=== PATIENT | male | born 1945 | race Caucasian/White ===

== ENCOUNTER 2020-08-16 08:01 | Inpatient (IN) | payer MEDICARE ==
[2020-08-16] MEDS ORDERED: Dexamethasone 10 MG/ML VIAL ONE (08:39)
[2020-08-16] MEDS ORDERED: Morphine 4 MG/ML VIAL ONE (08:56)
[2020-08-16] MEDS ORDERED: Ondansetron PF 4 MG/2 ML Vial ONE (08:57)
[2020-08-16 09:07] LABS: #Lymphocytes 0.5 thou/uL (1.20-3.40); #Monocytes 0.2 thou/uL (0.11-0.59); #Neutrophils 8.7 thou/uL (1.40-6.50); %Basophils 0.1 % (0.0-1.0); %Eosinophils 0.1 % (0.0-10.0); %Lymphocytes 5.7 % (21.0-51.0); %Monocytes 2.2 % (0.0-10.0); Mean Corpuscular HGB CONC 33.9 g/dL (32.0-36.0); Mean Corpuscular Hemoglobin 31.4 pg (27.0-31.0); Mean Corpuscular Volume 92.9 fL (78.0-98.0); Mean Platelet Volume 8.6 fL (7.4-10.4); Platelet Count 165 thou/uL (130-400); RBC Distribution Width 12.7 % (11.5-14.5); Red Blood Cell (RBC) Count 4.14 mill/uL (4.70-6.10); White Blood Cell (WBC) Count 9.4 thou/uL (4.8-10.8)
--- NOTE | 2020-08-16 09:18 | RAD ---
Chest one view HISTORY: Cough and dyspnea. COMPARISON: 03/13/2015. FINDINGS: Cardiac silhouette is magnified and upper limits of normal in size. Pulmonary vasculature p redominantly engorged by ill-defined patchy peripheral areas of groundglass infiltrate involving each lung. Mediastinum is midline with a dual lead left subclavian cardiac electronic device. Evidence of chronic bilateral rotator cuff tears. No lobar consolidation or evidence of pneumothorax. IMPRESSION : Multifocal bilateral infiltrates. Correlate for COVID pneumonitis.
[2020-08-16 09:28] LABS: ALT (SGPT) 35 U/L (8-55); AST (SGOT) 50 U/L (5-34); Albumin 3.6 g/dL (3.4-4.8); Alkaline Phosphatase 40 U/L (40-110); Anion Gap 16 mmol/L (10-20); BUN (Urea Nitrogen) 38 mg/dL (8.4-25.7); Bilirubin, Total 0.7 mg/dL (0.2-1.2); Calc. Creatinine Clearance 0 mL/min (70-130); Carbon Dioxide 17 mmol/L (23-31); Chloride 109 mmol/L (98-107); Globulin 2.6 g/dL (2.4-3.5); Glucose 123 mg/dL (83-110); Potassium 4.2 mmol/L (3.5-5.1); Protein, Total 6.2 g/dL (5.8-8.1); Sodium 138 mmol/L (136-145)
[2020-08-16 09:50] LABS: CKMB 2.4 ng/mL (0-6.6)
[2020-08-16 10:52] LABS: SARS-CoV-2 NAA Rapid Test DETECTED (NotDetected)
--- NOTE | 2020-08-16 12:30 | PDOC.FPRHP ---
- History of Present Illness Chief Complaint: SOB History of Present Illness: Patient is a 75 year old male with hx of CHF with AICD/Pacemaker, CAD, afib who presents for worsening SOB. Patient reported he had been overall feeling "unwell" for the past two weeks. He did a virtual visit with his PCP who prescribed him azithromycin which didn't help. He states he symptoms worsened last on 07/12. He endorses subject fevers, dyspnea with decreased appetite. He denies cough, chest pain. In the ER he was found to require 4L nasal cannula oxygen. In the ED, patient was 88% on RA. Place on 4 L NC with sat 94%. EKS showed NSR without ST segment changes, premature atrial contractions present. Given 10mg dexamethasone, 4mg morphine and zofran. - Allergies/Adverse Reactions Allergies Allergy/AdvReac Type Severity Reaction Status Date / Time hydrochlorothiazide Allergy Verified 04/23/14 11:59 - Home Medications Medication Instructions Recorded Confirmed Type Apixaban [Eliquis] 5 mg PO BID #0 tab 03/16/15 08/16/20 Rx Allopurinol 300 mg PO DAILY 08/16/20 08/16/20 History Ezetimibe [Zetia] 10 mg PO DAILY 08/16/20 08/16/20 History Isosorbide Mononitrate [Imdur ER] 30 mg PO DAILY 08/16/20 08/16/20 History Metoprolol Succinate [Toprol XL] 100 mg PO DAILY 08/16/20 08/16/20 History Olmesartan [Benicar] 40 mg PO DAILY 08/16/20 08/16/20 History Pravastatin Sodium [Pravachol] 20 mg PO HS 08/16/20 08/16/20 History - History PMHx: afib, CHF with AICD, CAD, chronic back pain, ICD with pacer, anxiety, depression Surgery: appendectomy, AICD placement Family history: heart disease Social history: 60 pack year history, quit 5 years ago, usually drinks 2-3 glasses of wine/night, last drink 1 week ago, denies drug use - Review of Systems General: reports: fever/chills, weight/appetite/sleep changes. denies: fatigue Eyes: denies: vision changes ENT: denies: nasal congestion, rhinorrhea Respiratory: reports: shortness of breath. denies: cough, congestion Cardiovascular: denies: chest pain, palpitation, edema Gastrointestinal: reports: diarrhea. denies: nausea, abdominal pain Genitourinary: denies: dysuria Skin: denies: rashes, jaundice Musculoskeletal: denies: pain, stiffness Neurological: denies: syncope, weakness Psychological: denies: anxiety, depression - Vital signs BP 126/74, HR 79, RR 31, Temp 99.8F, O2 sat 93-95% on 4L, 101.4kg - Physical Exam Constitutional: NAD, awake, alert and oriented HEENT: normocephalic and atraumatic, no scleral icterus, other (mildy dry mucosal membranes) Neck: supple, trachea midline Heart: RRR, normal S1/S2, no edema Lungs: CTAB, good air movement, no rales/rhonchi, no wheezing, no retractions -Lungs: mildly tachypneic Abdomen: soft, non-tender, bowel sounds present Musculoskeletal: normal structure, ROM grossly normal Neurological: no focal deficit Skin: no rash/lesions Heme/Lymphatic: no unusual bruising or bleeding Psychiatric: normal mood and affect, good judgment and insight FMR H&P: Results - Labs Result Diagrams: 08/16/20 08:52 08/16/20 08:53 Lab results: WBC 9.4 thou/uL (4.8-10.8) 08/16/20 08:52 Hgb 13.0 g/dL (14.0-18.0) L 08/16/20 08:52 Hct 38.4 % (42.0-52.0) L 08/16/20 08:52 MCV 92.9 fL (78.0-98.0) 08/16/20 08:52 Plt Count 165 thou/uL (130-400) 08/16/20 08:52 Neutrophils % 92.0 % (42.0-75.0) H 08/16/20 08:52 Sodium 138 mmol/L (136-145) 08/16/20 08:53 Potassium 4.2 mmol/L (3.5-5.1) 08/16/20 08:53 Chloride 109 mmol/L (98-107) H 08/16/20 08:53 Carbon Dioxide 17 mmol/L (23-31) L 08/16/20 08:53 BUN 38 mg/dL (8.4-25.7) H 08/16/20 08:53 Creatinine 1.22 mg/dL (0.7-1.3) 08/16/20 08:53 Glucose 123 mg/dL (83-110) H 08/16/20 08:53 Lactic Acid 1.4 mmol/L (0.5-2.2) 08/16/20 08:52 Calcium 8.0 mg/dL (7.8-10.44) 08/16/20 08:53 Total Bilirubin 0.7 mg/dL (0.2-1.2) 08/16/20 08:53 AST 50 U/L (5-34) H 08/16/20 08:53 ALT 35 U/L (8-55) 08/16/20 08:53 Alkaline Phosphatase 40 U/L (40-110) 08/16/20 08:53 CK-MB (CK-2) 2.4 ng/mL (0-6.6) 08/16/20 08:53 B-Natriuretic Peptide 227.0 pg/mL (0-100) H 08/16/20 08:52 Serum Total Protein 6.2 g/dL (5.8-8.1) 08/16/20 08:53 Albumin 3.6 g/dL (3.4-4.8) 08/16/20 08:53 - EKG Interpretation EKG: NSR without ST segment changes, premature atrial contractions present - Radiology Interpretation Chest x-ray Status: image reviewed by me, report reviewed by me Additional comment: multifocal bilateral infiltrates, consistent with COVID pneumonia FMR H&P: A/P - Plan 75 year old year old male with hx CHF, afib and CAD who presented with SOB and fever Acute hypoxic respiratory failure 2/2 COVID pneumonia requiring supplemental oxygen Symptom onset 08/12 . COVID+ 08/16/20. Sat'ing 88% on RA, transitioned to 4 L NC with 94-95%. WBC 9.4. Afebrile. CXR consistent with COVID pneumonia. -Admit to inpatient tele due to multiple cardiac comoribidites and indeterminate troponin -Decadron (08/16) in ED. Start remdesivir and convalescent plasma. -Obtain procal, d-dimer level and other COVID risk stratifying labs -Abxs pending procal -Will order COVID baseline labs Indeterminate troponin > NSTEMI, suspect type II -Denies chest pain -Suspect type II due to demand ischemia from hypoxia -> repeat EKG, start th. lovenox -EKG: Showed NSR without ST segment changes, premature atrial contractions present -Continue to trend troponins Elevated BNP in HFrEF with AICD/PM -Euvolemic, continue home lasix -Strict I/Os -Follows with Dr. Tinajero outpatient Hx afib -Rate controlled -Continue home meds Chronic back pain -MD aware Gout -Continue home allopurinol HLD -Home meds CAD -Home meds dvt ppx: Home eliquis GI ppx: Protonix Code: DNR PCP: KURT Discussed with Dr. Jarrett FMR H&P: Upper Level - Plan Date/Time: 08/16/20 1230 I, [], have evaluated this patient and agree with findings/plan as outlined by internal wholesaler resident. Pertinent changes/additions are listed here. Addendum - Attending - Attending Attestation Date/Time: 08/16/20 5377 I personally evaluated the patient and discussed the management with Dr. Keith. I agree with the History, Examination, Assessment and Plan documented above with any addition or exceptions noted below.
[2020-08-16] MEDS ORDERED: Acetaminophen 325 MG TAB PO PRN (12:49)
[2020-08-16] MEDS ORDERED: Ondansetron ODT 4 MG TAB PO PRN (12:49)
[2020-08-16] MEDS ORDERED: Ondansetron PF 4 MG/2 ML Vial IVP PRN (12:49)
[2020-08-16] MEDS ORDERED: Nicotine 14 MG PATCH TD SCH (13:00)
[2020-08-16] MEDS ORDERED: REMDESIVIR (EUA) 200 MG in Sodium Chloride 0.9% 250 ML 210 ML IV SCH (13:30)
[2020-08-16] MEDS ORDERED: Iopamidol-370 76% 500 ML 1 ML ONE (13:34)
[2020-08-16 13:37] LABS: Troponin I 0.339 ng/mL (< 0.028)
--- NOTE | 2020-08-16 14:31 | CT ---
Exam: CT angiogram of the chest HISTORY: Elevated d-dimer. Congestive heart failure. Fever and shortness of breath. COMPARISON: None TECHNIQUE: CT angiogram of the chest is performed in the axial plane. Three-dimensional reformatted i mages are submitted for interpretation FINDINGS: Mediastinum: No mass, lymphadenopathy or hematoma. HEART: Normal size. No significant pericardial fluid. Aorta: No aneurysm or dissection. Scattered atherosclerotic disease Upper solid abdominal viscera: No abnormality enhancement. Trachea and central bronchi: Patent Pleural spaces: No effusion Lung parenchyma: Scattered groundglass opacities compatible with COVID pneumonia. Minimal dependent a telectatic changes. Pneumothorax: None Osseous structures: No lytic or blastic lesions Pulmonary arteries: Adequate contrast opacification pulmonary arterial system to the level of segment al arteries. No filling defect to suggest pulmonary embolism IMPRESSION: 1. No evidence of pulmonary artery embolism to the level of the segmental arteries 2. Multi lobar groundglass opacities, distribution consistent with COVID pneumonia. Confirm patient's COVID status.
[2020-08-16] MEDS ORDERED: Aspirin 325 MG TAB PO SCH (15:00)
[2020-08-16 15:21] VITALS: BMI 35.6
[2020-08-16] MEDS ORDERED: PROVENTIL INHALER 6.7 G (200 INHALATIONS) INH PRN (15:32)
[2020-08-16 15:56] LABS: Critical Call Chem Troponin I RESULT DECREASING; Troponin I 0.331 ng/mL (< 0.028)
[2020-08-16] MEDS ORDERED: Azithromycin 500 MG in Sodium Chloride 0.9% 250 ML 250 ML IVPB SCH (18:00)
[2020-08-16] MEDS: cefTRIAXone\\ROCEPHIN 2 GM in Sodium Chloride 0.9% 100 ML IVPB SCH (19:49)
[2020-08-16] MEDS: Apixaban 5 MG TAB PO SCH (19:50)
[2020-08-16] MEDS: Enoxaparin Sodium 100 MG/ML SYRINGE SC SCH (19:50)
[2020-08-16] MEDS ORDERED: Atorvastatin Calcium 10 MG TAB PO SCH (21:00)
[2020-08-17 05:17] LABS: #Lymphocytes 0.9 thou/uL (1.20-3.40); #Monocytes 0.5 thou/uL (0.11-0.59); #Neutrophils 5.5 thou/uL (1.40-6.50); %Basophils 0.1 % (0.0-1.0); %Eosinophils 0.1 % (0.0-10.0); %Lymphocytes 13.3 % (21.0-51.0); %Monocytes 7.3 % (0.0-10.0); %Neutrophils 79.2 % (42.0-75.0); Hemoglobin 11.9 g/dL (14.0-18.0); Mean Corpuscular HGB CONC 33.3 g/dL (32.0-36.0); Mean Corpuscular Hemoglobin 31.2 pg (27.0-31.0); Mean Corpuscular Volume 93.7 fL (78.0-98.0); Mean Platelet Volume 8.8 fL (7.4-10.4); Platelet Count 194 thou/uL (130-400); RBC Distribution Width 12.6 % (11.5-14.5); Red Blood Cell (RBC) Count 3.82 mill/uL (4.70-6.10)
[2020-08-17 05:39] LABS: Anion Gap 14 mmol/L (10-20); BUN (Urea Nitrogen) 40 mg/dL (8.4-25.7); Calc. Creatinine Clearance 104 mL/min (70-130); Calcium 8.4 mg/dL (7.8-10.44); Carbon Dioxide 18 mmol/L (23-31); Chloride 111 mmol/L (98-107); Glucose 154 mg/dL (83-110); Potassium 4.3 mmol/L (3.5-5.1); Sodium 139 mmol/L (136-145)
--- NOTE | 2020-08-17 06:11 | PDOC.FM ---
- Subjective Subjective: Denies headache, vision changes, chest pain, palpitations, SOB, nausea, abdominal pain and edema. Reports he feels well. Tele: a-paced - Objective MAR Reviewed: Yes Vital Signs & Weight: Vital Signs (12 hours) Temp Pulse Resp BP Pulse Ox 08/17/20 04:54 95 08/17/20 04:00 97.7 F 63 18 142/74 H 95 08/17/20 00:30 98.2 F 63 20 148/68 H 95 08/16/20 20:00 98.3 F 70 26 H 129/70 98 Weight Weight 100.244 kg I&O: 08/15/20 08/16/20 08/17/20 06:59 06:59 06:59 Intake Total 970 Output Total 600 Balance 370 Result Diagrams: 08/17/20 05:00 08/17/20 05:00 Phys Exam - Physical Examination Constitutional: NAD HEENT: moist MMs, sclera anicteric Neck: full ROM Respiratory: no wheezing, clear to auscultation bilateral On 4L Cardiovascular: RRR, no significant murmur Gastrointestinal: soft, non-tender, positive bowel sounds Musculoskeletal: no edema Neurological: non-focal Psychiatric: normal affect, A&O x 3 Skin: no rash Dx/Plan - Plan Plan: 75 year old year old male with hx CHF, afib and CAD who presented with SOB and fever Acute hypoxic respiratory failure 2/2 COVID pneumonia requiring supplemental oxygen Symptom onset 08/12 . COVID+ 08/16/20. Sat'ing 88% on RA in ED, transitioned to 4 L NC. WBC 9.4. Afebrile. CXR consistent with COVID pneumonia. -Admit to inpatient tele due to multiple cardiac comoribidites and indeterminate troponin -Decadron (08/16), remdesivir (08/16) and convalescent plasma (08/16) -D-dimer 1.09. CTA Chest negative for PE -Procal 1.45. Continue azithromycin (08/16) and rocephin (08/16) -PT/OT/CM consulted -Currently on 4L NC. Wean as tolerated NSTEMI, suspect type II Suspect type II due to demand ischemia from hypoxia. Initial EKG showed NSR without ST segment changes, premature atrial contractions present. Repeat EKG showed NSR with premature ventricular contractions -Trop trended: 0.172 > 0.399 > 0.331 -Denies chest pain -Continue therapeutic lovenox -Start ASA 81mg daily -Start atorvastatin 80mg daily Elevated BNP in HFrEF with AICD/PM -Euvolemic, continue home lasix -Strict I/Os -Follows with Dr. Tinajero outpatient Hx afib -Rate controlled -Continue home meds Chronic back pain -MD aware Gout -Continue home allopurinol HLD -Home meds CAD -Home meds dvt ppx: Therapeutic lovenox GI ppx: Protonix Code: DNR PCP: OOT Dispo: Pending PT/OT recs and further medical management Addendum - Attending - Attending Attestation Date/Time: 08/17/20 9364 I personally evaluated the patient and discussed the management with Dr. Parker. I agree with the History, Examination, Assessment and Plan documented above with any addition or exceptions noted below. Patient denies complaints. Reports less dyspnea this morning. Continue treatment for COVID. He will continue on Eliquis for anticoagulation for his demand ische mark picture. Has chronic CHF that we will need to monitor closely. PT.
[2020-08-17] MEDS: Azithromycin 250 MG TAB PO SCH (08:51)
[2020-08-17] MEDS: Allopurinol 300 MG TAB PO SCH (08:51)
[2020-08-17] MEDS: Enoxaparin Sodium 100 MG/ML SYRINGE SC SCH (08:51)
[2020-08-17] MEDS: Dexamethasone 4 MG TAB PO SCH (08:52)
[2020-08-17] MEDS: Ezetimibe 10 MG TAB PO SCH (08:53)
[2020-08-17] MEDS: Losartan 25 MG TAB PO SCH (08:54)
[2020-08-17] MEDS: Aspirin 81 mg Enteric Coated Tablet PO SCH (08:54)
[2020-08-17] MEDS: Furosemide 20 MG TAB PO SCH (08:54)
[2020-08-17] MEDS: REMDESIVIR (EUA) 100 MG in Sodium Chloride 0.9% 250 ML 230 ML IV SCH (15:31)
[2020-08-17] MEDS: cefTRIAXone\\ROCEPHIN 2 GM in Sodium Chloride 0.9% 100 ML IVPB SCH (18:39)
[2020-08-17] MEDS: Apixaban 5 MG TAB PO SCH (20:33)
[2020-08-17] MEDS: Atorvastatin Calcium 40 MG TAB PO SCH (20:33)
[2020-08-18 05:57] LABS: #Lymphocytes 1.1 thou/uL (1.20-3.40); #Monocytes 0.6 thou/uL (0.11-0.59); #Neutrophils 8.6 thou/uL (1.40-6.50); %Basophils 0.3 % (0.0-1.0); %Lymphocytes 10.3 % (21.0-51.0); %Monocytes 5.6 % (0.0-10.0); %Neutrophils 83.7 % (42.0-75.0); Hemoglobin 11.4 g/dL (14.0-18.0); Mean Corpuscular HGB CONC 32.6 g/dL (32.0-36.0); Mean Corpuscular Hemoglobin 30.6 pg (27.0-31.0); Mean Corpuscular Volume 93.9 fL (78.0-98.0); Mean Platelet Volume 8.6 fL (7.4-10.4); Platelet Count 234 thou/uL (130-400); RBC Distribution Width 12.7 % (11.5-14.5); Red Blood Cell (RBC) Count 3.73 mill/uL (4.70-6.10); White Blood Cell (WBC) Count 10.3 thou/uL (4.8-10.8)
[2020-08-18 06:08] LABS: Anion Gap 14 mmol/L (10-20); BUN (Urea Nitrogen) 44 mg/dL (8.4-25.7); Calc. Creatinine Clearance 96 mL/min (70-130); Carbon Dioxide 20 mmol/L (23-31); Chloride 114 mmol/L (98-107); Potassium 4.8 mmol/L (3.5-5.1); Sodium 143 mmol/L (136-145)
[2020-08-18 06:09] LABS: Calcium 8.4 mg/dL (7.8-10.44); Glucose 144 mg/dL (83-110)
--- NOTE | 2020-08-18 06:25 | PDOC.FM ---
- Subjective Subjective: Reports improvement of SOB. Continued generalized weakness. Notes development of cough with productive sputum. Denies headache, vision changes, chest pain, palpitations and edema. Says he is willing to go to rehab upon discharge per PT/OT recs - Objective MAR Reviewed: Yes Vital Signs & Weight: Vital Signs (12 hours) Temp Pulse Resp BP BP Pulse Ox 08/18/20 05:00 142/64 H 08/18/20 04:00 97.6 F 62 18 142/64 H 95 08/18/20 00:11 144/67 H 08/17/20 23:57 97.8 F 69 18 144/67 H 95 08/17/20 21:00 133/70 08/17/20 20:21 96.5 F L 75 20 133/70 98 Weight Weight 100.244 kg I&O: 08/16/20 08/17/20 08/18/20 06:59 06:59 06:59 Intake Total 970 1310 Output Total 600 1125 Balance 370 185 Result Diagrams: 08/18/20 05:36 08/18/20 05:36 Phys Exam - Physical Examination Constitutional: NAD HEENT: moist MMs, sclera anicteric Neck: full ROM Respiratory: no wheezing, clear to auscultation bilateral On 3L Cardiovascular: RRR, no significant murmur Gastrointestinal: soft, non-tender, positive bowel sounds Musculoskeletal: no edema Neurological: moves all 4 limbs Psychiatric: normal affect, A&O x 3 Skin: no rash Dx/Plan - Plan Plan: 75 year old year old male with hx CHF, afib and CAD who presented with SOB and fever Acute hypoxic respiratory failure 2/2 COVID pneumonia requiring supplemental oxygen Symptom onset 08/12 . COVID+ 08/16/20. Sat'ing 88% on RA in ED, transitioned to 4 L NC upon admission. WBC 9.4. Afebrile. CXR consistent with COVID pneumonia. -Admit to inpatient tele due to multiple cardiac comoribidites and indeterminate troponin -Decadron (08/16), remdesivir (08/16) and convalescent plasma (08/16) -D-dimer 1.09. CTA Chest negative for PE -Procal 1.45. Continue azithromycin (08/16) and rocephin (08/16) -Mucinex for cough -PT/OT consulted. Recommended rehab placement -CM consulted for rehab -Currently on 3L NC. Wean as tolerated NSTEMI, suspect type II 2/2 demand ischemia Suspect type II due to demand ischemia from hypoxia. Initial EKG showed NSR without ST segment changes, premature atrial contractions present. Repeat EKG showed NSR with premature ventricular contractions -Trop trended: 0.172 > 0.399 > 0.331 -Denies chest pain -Continue home eliquis -Continue ASA 81mg daily -Continue atorvastatin 80mg daily HFrEF with AICD/PM -Euvolemic, continue home lasix -Strict I/Os -Follows with Dr. Tinajero outpatient Hx afib -Rate controlled -Continue home meds Chronic back pain -MD aware Gout -Continue home allopurinol HLD -Home meds CAD -Home meds dvt ppx: Home eliquis GI ppx: Protonix Code: DNR PCP: KURT Dispo: Rehab pending further medical management and placement approval Addendum - Attending - Attending Attestation Date/Time: 08/18/20 1111 I personally evaluated the patient and discussed the management with Dr. Parker. I agree with the History, Examination, Assessment and Plan documented above with any addition or exceptions noted below.
[2020-08-18] MEDS: Dexamethasone 4 MG TAB PO SCH (09:15)
[2020-08-18] MEDS: Ezetimibe 10 MG TAB PO SCH (09:15)
[2020-08-18] MEDS: Losartan 25 MG TAB PO SCH (09:15)
[2020-08-18] MEDS: Azithromycin 250 MG TAB PO SCH (09:15)
[2020-08-18] MEDS: guaiFENesin ER 600 MG TAB PO SCH ×2 (09:15→20:45)
[2020-08-18] MEDS: Allopurinol 300 MG TAB PO SCH (09:16)
[2020-08-18] MEDS: Apixaban 5 MG TAB PO SCH ×2 (09:16→20:45)
[2020-08-18] MEDS: Furosemide 20 MG TAB PO SCH (09:17)
[2020-08-18 10:06] LABS: ALT (SGPT) 44 U/L (8-55); AST (SGOT) 47 U/L (5-34); Albumin 3.4 g/dL (3.4-4.8); Alkaline Phosphatase 34 U/L (40-110); Bilirubin, Direct 0.3 mg/dL (0.1-0.3); Bilirubin, Total 0.5 mg/dL (0.2-1.2); Protein, Total 6.3 g/dL (5.8-8.1)
[2020-08-18] MEDS: Aspirin 81 mg Enteric Coated Tablet PO SCH (12:00)
[2020-08-18] MEDS: REMDESIVIR (EUA) 100 MG in Sodium Chloride 0.9% 250 ML 230 ML IV SCH (15:58)
[2020-08-18] MEDS: cefTRIAXone\\ROCEPHIN 2 GM in Sodium Chloride 0.9% 100 ML IVPB SCH (17:26)
[2020-08-18] MEDS: Atorvastatin Calcium 40 MG TAB PO SCH (20:45)
--- NOTE | 2020-08-19 06:14 | PDOC.FM ---
- Subjective Subjective: Reports continued fatigue and generalized weakness. Says he felt stronger when working with PT yesterday - sat > 95% on 2L with ambulation. No headache, vision changes, chest pain, SOB, wheezing and palpitations. - Objective MAR Reviewed: Yes Vital Signs & Weight: Vital Signs (12 hours) Temp Pulse Resp BP BP BP Pulse Ox 08/19/20 05:00 142/69 H 08/19/20 04:00 97.6 F 68 24 H 142/69 H 92 L 08/19/20 01:00 153/74 H 08/19/20 00:00 97.4 F L 60 24 H 153/74 H 96 08/18/20 21:00 126/60 08/18/20 20:00 98.2 F 60 20 126/60 96 Weight Weight 100.244 kg I&O: 08/17/20 08/18/20 08/19/20 06:59 06:59 06:59 Intake Total 970 1310 1590 Output Total 600 1575 575 Balance 370 -265 1015 Result Diagrams: 08/18/20 05:36 08/19/20 04:52 Phys Exam - Physical Examination Constitutional: NAD Sitting up in a chair HEENT: moist MMs, sclera anicteric Neck: full ROM Respiratory: clear to auscultation bilateral On 2L Cardiovascular: RRR, no significant murmur Gastrointestinal: soft, non-tender, positive bowel sounds Musculoskeletal: no edema Neurological: moves all 4 limbs Psychiatric: normal affect, A&O x 3 Skin: no rash Dx/Plan - Plan Plan: 75 year old year old male with hx CHF, afib and CAD who presented with SOB and fever Acute hypoxic respiratory failure 2/2 COVID pneumonia requiring supplemental oxygen Symptom onset 08/12 . COVID+ 08/16/20. Sat'ing 88% on RA in ED, transitioned to 4 L NC upon admission. WBC 9.4. Afebrile. CXR consistent with COVID pneumonia. -Admit to inpatient tele due to multiple cardiac comoribidites and indeterminate troponin -Decadron (08/16), remdesivir (08/16) and s/p convalescent plasma (08/16) -D-dimer 1.09. CTA Chest negative for PE -Procal 1.45. Continue azithromycin (08/16) and rocephin (08/16) -Mucinex for cough -PT/OT consulted. Recommended rehab placement -CM consulted for SNF vs. swing bed due to lack of rehab facilities accepting COVID + patients -Currently on 2L NC. Wean as tolerated NSTEMI, suspect type II 2/2 demand ischemia Suspect type II due to demand ischemia from hypoxia. Initial EKG showed NSR without ST segment changes, premature atrial contractions present. Repeat EKG showed NSR with premature ventricular contractions -Trop trended: 0.172 > 0.399 > 0.331 -Denies chest pain -Continue home eliquis -Continue ASA 81mg daily -Continue atorvastatin 80mg daily HFrEF with AICD/PM -Euvolemic, continue home lasix -Strict I/Os -Follows with Dr. Tinajero outpatient Hx afib -Rate controlled -Continue home meds Chronic back pain -MD aware Gout -Continue home allopurinol HLD -Home meds CAD -Home meds dvt ppx: Home eliquis GI ppx: Protonix Code: DNR PCP: OOT Dispo: SNF vs. swing bed pending placement approval Addendum - Attending - Attending Attestation Date/Time: 08/19/20 5697 I personally evaluated the patient and discussed the management with Dr. Parker. I agree with the History, Examination, Assessment and Plan documented above with any addition or exceptions noted below.
[2020-08-19 06:20] LABS: ALT (SGPT) 88 U/L (8-55); AST (SGOT) 67 U/L (5-34); Albumin 3.3 g/dL (3.4-4.8); Alkaline Phosphatase 32 U/L (40-110); Anion Gap 13 mmol/L (10-20); BUN (Urea Nitrogen) 43 mg/dL (8.4-25.7); Bilirubin, Total 0.6 mg/dL (0.2-1.2); Calc. Creatinine Clearance 102 mL/min (70-130); Carbon Dioxide 19 mmol/L (23-31); Chloride 112 mmol/L (98-107); Globulin 2.7 g/dL (2.4-3.5); Glucose 125 mg/dL (83-110); Potassium 4.3 mmol/L (3.5-5.1); Sodium 140 mmol/L (136-145)
[2020-08-19] MEDS: Dexamethasone 4 MG TAB PO SCH (10:36)
[2020-08-19] MEDS: Losartan 25 MG TAB PO SCH (10:36)
[2020-08-19] MEDS: Apixaban 5 MG TAB PO SCH ×2 (10:37→20:28)
[2020-08-19] MEDS: Aspirin 81 mg Enteric Coated Tablet PO SCH (10:37)
[2020-08-19] MEDS: Ezetimibe 10 MG TAB PO SCH (10:37)
[2020-08-19] MEDS: Allopurinol 300 MG TAB PO SCH (10:37)
[2020-08-19] MEDS: Azithromycin 250 MG TAB PO SCH (10:38)
[2020-08-19] MEDS: Furosemide 20 MG TAB PO SCH (10:38)
[2020-08-19] MEDS: guaiFENesin ER 600 MG TAB PO SCH ×2 (10:39→20:28)
[2020-08-19] MEDS: REMDESIVIR (EUA) 100 MG in Sodium Chloride 0.9% 250 ML 230 ML IV SCH (16:22)
[2020-08-19] MEDS: cefTRIAXone\\ROCEPHIN 2 GM in Sodium Chloride 0.9% 100 ML IVPB SCH (18:05)
[2020-08-19] MEDS: Atorvastatin Calcium 40 MG TAB PO SCH (20:28)
[2020-08-20 05:39] LABS: ALT (SGPT) 135 U/L (8-55); AST (SGOT) 88 U/L (5-34); Albumin 3.6 g/dL (3.4-4.8); Alkaline Phosphatase 37 U/L (40-110); Anion Gap 13 mmol/L (10-20); BUN (Urea Nitrogen) 42 mg/dL (8.4-25.7); Bilirubin, Total 0.6 mg/dL (0.2-1.2); Calc. Creatinine Clearance 91 mL/min (70-130); Calcium 8.3 mg/dL (7.8-10.44); Carbon Dioxide 21 mmol/L (23-31); Chloride 112 mmol/L (98-107); Globulin 2.9 g/dL (2.4-3.5); Glucose 119 mg/dL (83-110); Potassium 4.4 mmol/L (3.5-5.1); Protein, Total 6.5 g/dL (5.8-8.1); Sodium 142 mmol/L (136-145)
--- NOTE | 2020-08-20 06:16 | PDOC.FM ---
- Subjective Subjective: Sitting up in bed on RA. Says he feels significantly better compared to day of admission. Mild SOB with ambulation. Improving strength. Denies headache, vision changes, chest pain, and palpitations. - Objective MAR Reviewed: Yes Vital Signs & Weight: Vital Signs (12 hours) Temp Pulse Resp BP BP BP BP 08/20/20 05:00 136/64 08/20/20 04:17 97.5 F L 68 21 H 136/64 08/20/20 01:00 174/80 H 08/20/20 00:00 97.4 F L 62 20 174/80 H 08/19/20 21:00 151/75 H 08/19/20 20:00 97.7 F 60 18 151/75 H Pulse Ox 08/20/20 05:00 08/20/20 04:17 93 L 08/20/20 01:00 08/20/20 00:00 95 08/19/20 21:00 08/19/20 20:00 96 Weight Weight 100.244 kg I&O: 08/18/20 08/19/20 08/20/20 06:59 06:59 06:59 Intake Total 1310 1590 Output Total 1575 1125 375 Balance -265 465 -375 Result Diagrams: 08/18/20 05:36 08/20/20 04:40 Phys Exam - Physical Examination Constitutional: NAD HEENT: moist MMs, sclera anicteric Neck: full ROM Respiratory: no wheezing, clear to auscultation bilateral On RA Cardiovascular: RRR, no significant murmur Gastrointestinal: soft, non-tender, positive bowel sounds Musculoskeletal: no edema Neurological: moves all 4 limbs Psychiatric: normal affect, A&O x 3 Skin: no rash Dx/Plan - Plan Plan: 75 year old year old male with hx CHF, afib and CAD who presented with SOB and fever Acute hypoxic respiratory failure 2/2 COVID pneumonia requiring supplemental oxygen Symptom onset 08/12 . COVID+ 08/16/20. Sat'ing 88% on RA in ED, transitioned to 4 L NC upon admission. WBC 9.4. Afebrile. CXR consistent with COVID pneumonia. -Admit to inpatient tele due to multiple cardiac comoribidites and indeterminate troponin -Decadron (08/16), remdesivir (08/16) and s/p convalescent plasma (08/16) -D-dimer 1.09. CTA Chest negative for PE -Procal 1.45 > .44 > .19. Stop azithromycin (08/16-) and rocephin () -Mucinex for cough -PT/OT consulted. Recommended rehab placement -CM consulted - approved for SNF -Currently on RA. Requires O2 with ambulation NSTEMI, suspect type II 2/2 demand ischemia Suspect type II due to demand ischemia from hypoxia. Initial EKG showed NSR without ST segment changes, premature atrial contractions present. Repeat EKG showed NSR with premature ventricular contractions -Trop trended: 0.172 > 0.399 > 0.331 -Denies chest pain -Continue home eliquis -Continue ASA 81mg daily -Continue atorvastatin 80mg daily HFrEF with AICD/PM -Euvolemic, continue home lasix -Strict I/Os -Follows with Dr. Tinajero outpatient Hx afib -Rate controlled -Continue home meds Chronic back pain -MD aware Gout -Continue home allopurinol HLD -Home meds CAD -Home meds dvt ppx: Home eliquis GI ppx: Protonix Code: DNR PCP: KURT Dispo: [facility] bed today Addendum - Attending - Attending Attestation Date/Time: 08/20/20 1136 I personally evaluated the patient and discussed the management with Dr. Parker. I agree with the History, Examination, Assessment and Plan documented above with any addition or exceptions noted below. Patient stable. Completes Remdesevir today, oxygenation status much improved. He is stable for discharge to rehab today.
[2020-08-20] MEDS: Apixaban 5 MG TAB PO SCH (10:01)
[2020-08-20] MEDS: Furosemide 20 MG TAB PO SCH (10:01)
[2020-08-20] MEDS: guaiFENesin ER 600 MG TAB PO SCH (10:01)
[2020-08-20] MEDS: Aspirin 81 mg Enteric Coated Tablet PO SCH (10:01)
[2020-08-20] MEDS: Allopurinol 300 MG TAB PO SCH (10:01)
[2020-08-20] MEDS: Ezetimibe 10 MG TAB PO SCH (10:01)
[2020-08-20] MEDS: Dexamethasone 4 MG TAB PO SCH (10:02)
[2020-08-20] MEDS: Losartan 25 MG TAB PO SCH (10:02)
[2020-08-20] MEDS: REMDESIVIR (EUA) 100 MG in Sodium Chloride 0.9% 250 ML 230 ML IV SCH (15:41)
[2020-08-20 15:55] VITALS: BP 140/67; TEMP 98.5
--- NOTE | 2020-08-21 13:37 | EKG ---
Test Reason : Blood Pressure : / mmHG Vent. Rate : 087 BPM Atrial Rate : 087 BPM P-R Int : 206 ms QRS Dur : 098 ms QT Int : 380 ms P-R-T Axes : -02 -16 -04 degrees QTc Int : 457 ms Sinus rhythm with Premature atrial complexes with Abberant conduction Low voltage QRS Borderline ECG Confirmed by MARTELL MELENDEZ, ALISTAIR ([id number]), marketing editor OLEG SARGENT ([id number] on 08/21/2020 1:37:14 PM Referred By: Confirmed By:ALISTAIR MOURA MD
== END 2020-08-20 19:40 | disposition swing bed (61) | DRG 177 ==
LOC: ERS 08:01 → 2SE 14:35
PROVIDERS: ADMIT Family Medicine; ATTEND Family Medicine
PROC: XW033E5 Introduction of Remdesivir Anti-infective into Peripheral Vein, Percutaneous Approach, New Technology Group 5 (ICD-10-PCS; principal; 2020-08-16)
PROC: XW13325 Transfusion of Convalescent Plasma (Nonautologous) into Peripheral Vein, Percutaneous Approach, New Technology Group 5 (ICD-10-PCS; 2020-08-16)
DX: U07.1 COVID-19 (principal); J96.01 Acute respiratory failure with hypoxia; Z66 Do not resuscitate; J12.82 Pneumonia due to coronavirus disease 2019; I21.A1 Myocardial infarction type 2; I50.22 Chronic systolic (congestive) heart failure; I25.10 Atherosclerotic heart disease of native coronary artery without angina pectoris; I48.91 Unspecified atrial fibrillation; M10.9 Gout, unspecified; E78.5 Hyperlipidemia, unspecified; G89.29 Other chronic pain; F41.9 Anxiety disorder, unspecified; F32.9 Major depressive disorder, single episode, unspecified; Z95.810 Presence of automatic (implantable) cardiac defibrillator; Z88.8 Allergy status to other drugs, medicaments and biological substances; Z79.01 Long term (current) use of anticoagulants; Z79.899 Other long term (current) drug therapy; Z90.49 Acquired absence of other specified parts of digestive tract
CPT/HCPCS: 0240U; 36415; 36416; 36430; 71045; 71275; 80048; 80053; 80076; 82553; 82728; 83605; 83615; 83880; 84145; 84484; 85025; 85379; 85652; 86140; 86850; 86900; 86901; 87040; 93005; 93010; 96374; J0456; J0696; J1100; J1650; J2270; J2405; J3490; J7050; J8540; P9017; Q9967

== ENCOUNTER 2024-06-05 09:45 | Day surgery (SDC) | payer MEDICARE ==
[2024-06-04 08:46] VITALS: BMI 33.6
[2024-06-05 11:56] LABS: #Basophils 0.04 10x3/uL (0.0-0.2); %Basophils 0.6 % (0.0-1.0); %Eosinophils 3.8 % (0.0-10.0); %Lymphocytes 23.3 % (21.0-51.0); %Monocytes 6.9 % (0.0-10.0); %Neutrophils 64.9 % (42.0-75.0); Hematocrit 37.5 % (42.0-52.0); Hemoglobin 12.6 g/dL (14.0-18.0); Mean Corpuscular HGB CONC 33.6 g/dL (32.0-36.0); Mean Corpuscular Hemoglobin 32.4 pg (27.0-31.0); Mean Corpuscular Volume 96.4 fL (78.0-98.0); Platelet Count 175 10x3/uL (130-400); RBC Distribution Width 14.5 % (11.5-14.5); Red Blood Cell (RBC) Count 3.89 mill/uL (4.70-6.10)
[2024-06-05] MEDS ORDERED: Etomidate 40 MG (20 mL) VIAL ONE (12:00)
[2024-06-05 12:19] LABS: Anion Gap 12 mmol/L (10-20); BUN (Urea Nitrogen) 29 mg/dL (8.4-25.7); Calc. Creatinine Clearance 63 mL/min (70-130); Carbon Dioxide 22 mmol/L (23-31); Chloride 113 mmol/L (98-107); Estimated GFR 55; Glucose 119 mg/dL (83-110); Potassium 4.3 mmol/L (3.5-5.1); Sodium 143 mmol/L (136-145)
[2024-06-05] MEDS ORDERED: Lidocaine 1% PF 5 ML VIAL ONE (12:27)
== END 2024-06-05 13:11 | disposition home or self-care (01) ==
LOC: SDC 09:45
PROVIDERS: ATTEND Internal Medicine Cardiovascular Disease
PROC: 5A2204Z Restoration of Cardiac Rhythm, Single (ICD-10-PCS; principal; 2024-06-05)
DX: I48.0 Paroxysmal atrial fibrillation (principal); I11.0 Hypertensive heart disease with heart failure; I50.22 Chronic systolic (congestive) heart failure; I25.10 Atherosclerotic heart disease of native coronary artery without angina pectoris; M19.90 Unspecified osteoarthritis, unspecified site; G47.33 Obstructive sleep apnea (adult) (pediatric); E78.00 Pure hypercholesterolemia, unspecified; K21.9 Gastro-esophageal reflux disease without esophagitis; Z86.16 Personal history of COVID-19; Z95.810 Presence of automatic (implantable) cardiac defibrillator; Z90.49 Acquired absence of other specified parts of digestive tract; Z88.8 Allergy status to other drugs, medicaments and biological substances; Z79.01 Long term (current) use of anticoagulants; Z79.899 Other long term (current) drug therapy
CPT/HCPCS: 80048; 85025; 92960; 93005; 93010